=== PATIENT | male | born 2000 | race Caucasian/White ===

== ENCOUNTER 2023-12-14 09:23 | Emergency (ER) | payer MEDICAID ==
[~2023-12-14] VITALS: Ht 188 cm; Wt 81.8 kg
[2023-12-14 09:41] VITALS: TEMP 98.6
[2023-12-14 10:45] LABS: BASOPHILS % (AUTO) 0.2 % (0.0-2.0); EOSINOPHILS % (AUTO) 0.1 % (1.0-6.0); HEMATOCRIT 37.5 % (41-53); HEMOGLOBIN 12.8 g/dL (13.5-17.5); LYMPHOCYTES # (AUTO) 0.7 K/uL (1.0-4.8); LYMPHOCYTES % (AUTO) 10.2 % (22.0-44.0); MEAN CORPUSCULAR VOLUME 88 fL (80-100); MONOCYTES # (AUTO) 0.3 K/uL (0.1-1.0); MONOCYTES % (AUTO) 4.4 % (2.0-9.0); NEUTROPHILS # (AUTO) 6.1 K/uL (1.8-7.7); NEUTROPHILS % (AUTO) 85.1 % (40.0-70.0); PLATELET COUNT (AUTO) 474 K/uL (150-450); RED BLOOD CELL COUNT(AUTO) 4.25 MIL/uL (4.50-5.90); RED CELL DISTRIBUTION WIDTH 13.3 % (11.5-14.5); WHITE BLOOD COUNT (AUTO) 7.2 K/uL (4.5-11.0)
[2023-12-14 10:55] LABS: ANION GAP 12 mmol/L (8-16); CALCIUM, TOTAL 8.8 mg/dL (8.8-10.5); CARBON DIOXIDE 25 mmol/L (22-29); CHLORIDE 102 mmol/L (98-107); CREATININE 0.73 mg/dL (0.60-1.30); GLOMERULAR FILTR. RATE CALC > 60 mL/min (>60); GLUCOSE,RANDOM 89 mg/dL (70-110); POTASSIUM 3.9 mmol/L (3.5-5.1); SODIUM SERUM 139 mmol/L (136-145); UREA NITROGEN, BLOOD 16 mg/dL (7-18)
[2023-12-14 11:02] LABS: ALANINE AMINOTRANSFERASE 29 U/L (12-78); ALBUMIN 3.8 g/dL (3.4-5.0); ALKALINE PHOSPHATASE 94 U/L (46-116); ASPARTATE AMINOTRANSFERASE 22 U/L (15-37); BILIRUBIN,TOTAL 0.3 mg/dL (0.1-1.0)
[2023-12-14 11:04] LABS: ALCOHOL, URINE DRUG SCREEN NEGATIVE (NEGATIVE); AMPHET/METH SCREEN,URINE POSITIVE (NEGATIVE); BARBITURATE SCREEN, URINE NEGATIVE (NEGATIVE); BENZODIAZEPINES SCREEN,URINE NEGATIVE (NEGATIVE); CANNABINOID SCREEN,URINE POSITIVE (NEGATIVE); COCAINE SCREEN,URINE NEGATIVE (NEGATIVE); METHADONE SCREEN, URINE NEGATIVE (NEGATIVE); OPIATE SCREEN,URINE NEGATIVE (NEGATIVE); PHENCYCLIDINE SCREEN,URINE NEGATIVE (NEGATIVE)
[2023-12-14 11:20] LABS: ALCOHOL, BLOOD (SERUM) < 3 mg/dL (0-10)
[2023-12-14 12:20] VITALS: BP 130/70; PULSE 64; RESP 16
== END 2023-12-14 12:46 | disposition home or self-care (01) ==
LOC: EMS 09:28
DX: S90.829A Blister (nonthermal), unspecified foot, initial encounter (principal); F15.10 Other stimulant abuse, uncomplicated; R53.1 Weakness; F12.90 Cannabis use, unspecified, uncomplicated; Z59.00 Homelessness unspecified; X58.XXXA Exposure to other specified factors, initial encounter; Y93.89 Activity, other specified; Y92.89 Other specified places as the place of occurrence of the external cause; Y99.8 Other external cause status
CPT/HCPCS: 99283; 80053; 85025; 36415; 80307; G0480

== ENCOUNTER 2024-11-14 17:55 | Inpatient (IN) | payer MEDICAID ==
[~2024-11-14] VITALS: Ht 172.7 cm; Wt 67.6 kg
[2024-11-14 18:29] LABS: BASOPHILS % (AUTO) 0.4 % (0.0-2.0); EOSINOPHILS % (AUTO) 0.4 % (1.0-6.0); HEMOGLOBIN 13.4 g/dL (13.5-17.5); LYMPHOCYTES # (AUTO) 1.2 K/uL (1.0-4.8); LYMPHOCYTES % (AUTO) 13.9 % (22.0-44.0); MEAN CORPUSCULAR HEMOGLOBIN 29.6 pg (26.0-34.0); MEAN CORPUSCULAR HGB CONC 33.4 G/dL (31.0-37.0); MEAN CORPUSCULAR VOLUME 89 fL (80-100); MONOCYTES # (AUTO) 0.4 K/uL (0.1-1.0); MONOCYTES % (AUTO) 4.5 % (2.0-9.0); NEUTROPHILS # (AUTO) 6.9 K/uL (1.8-7.7); NEUTROPHILS % (AUTO) 80.8 % (40.0-70.0); PLATELET COUNT (AUTO) 377 K/uL (150-450); RED BLOOD CELL COUNT(AUTO) 4.52 MIL/uL (4.50-5.90); RED CELL DISTRIBUTION WIDTH 13.9 % (11.5-14.5); WHITE BLOOD COUNT (AUTO) 8.6 K/uL (4.5-11.0)
[2024-11-14 18:38] LABS: ANION GAP 8 mmol/L (8-16); CARBON DIOXIDE 30 mmol/L (22-29); CHLORIDE 99 mmol/L (98-107); CREATININE 0.91 mg/dL (0.60-1.30); GLOMERULAR FILTR. RATE CALC > 60 mL/min (>60); GLUCOSE,RANDOM 101 mg/dL (70-110); POTASSIUM 3.7 mmol/L (3.5-5.1); SODIUM SERUM 137 mmol/L (136-145); UREA NITROGEN, BLOOD 7 mg/dL (7-18)
[2024-11-14 18:41] LABS: COVID AG,FIA SOURCE NASAL SWAB
[2024-11-14 18:41] LABS: ALCOHOL, BLOOD (SERUM) < 3 mg/dL (0-10)
[2024-11-14 18:48] LABS: PH,URINE DRUG SCREEN 6.5 (5.0-8.0)
[2024-11-14 18:56] LABS: ALCOHOL, URINE DRUG SCREEN NEGATIVE (NEGATIVE); AMPHET/METH SCREEN,URINE POSITIVE (NEGATIVE); BARBITURATE SCREEN, URINE NEGATIVE (NEGATIVE); BENZODIAZEPINES SCREEN,URINE NEGATIVE (NEGATIVE); CANNABINOID SCREEN,URINE POSITIVE (NEGATIVE); COCAINE SCREEN,URINE NEGATIVE (NEGATIVE); METHADONE SCREEN, URINE NEGATIVE (NEGATIVE); OPIATE SCREEN,URINE NEGATIVE (NEGATIVE); PHENCYCLIDINE SCREEN,URINE NEGATIVE (NEGATIVE)
[2024-11-14] MEDS: HALOPERIDOL 5 MG TABLET PO ONE (19:04)
[2024-11-14 19:05] LABS: SARS-COV2 (COVID) ANTIGEN,FIA Negative (Negative)
[2024-11-14] MEDS: DiphenhydrAMINE HCL 25 MG CAPSULE PO ONE (19:58)
[2024-11-14] MEDS: LORazepam 2 MG TABLET PO ONE (19:58)
[2024-11-15] VITALS (11 sets, daily range): BP systolic 104–134; BP diastolic 61–82; PULSE 68–105; RESP 15–18; TEMP 97.3–98.5; O2SAT 96–99
[2024-11-15] MEDS ORDERED: INFLUENZA VIRUS VACCINE TVS (6MO+) 2024-25/PF 45 MCG/0.5 ML SYRINGE IM. ONE (03:15)
[2024-11-15] MEDS ORDERED: PROMETHAZINE HCL 25 MG TABLET PO PRN (09:45)
[2024-11-15] MEDS ORDERED: OLANZapine 5 MG RAPDIS TABLET PO PRN (09:45)
[2024-11-15] MEDS ORDERED: GuaiFENesin/D-METHORPHAN [SUGAR-FREE] 200-20MG/10 ML SYRUP UDCUP PO PRN (09:45)
[2024-11-15] MEDS ORDERED: MAG HYDROX/ALUMINUM HYD/SIMETH ES 30 ML SUSPENSION UDCUP PO PRN ×2 (09:45)
[2024-11-15] MEDS ORDERED: MAGNESIUM HYDROXIDE SUSPENSION 30 ML UDCUP PO PRN (09:45)
[2024-11-15] MEDS ORDERED: TUBERCULIN, PURIFIED PROTEIN DERIVATIVE 5 TU/0.1 ML SYRINGE ID ONE (09:45)
[2024-11-15] MEDS ORDERED: HydrOXYzine PAMOATE 50 MG CAPSULE PO PRN (09:45)
[2024-11-15] MEDS ORDERED: MELATONIN 5 MG TABLET PO PRN (09:45)
[2024-11-15] MEDS ORDERED: LOPERAMIDE HCL 2 MG CAPSULE PO PRN (09:45)
[2024-11-15] MEDS ORDERED: ACETAMINOPHEN 325 MG TABLET PO PRN (09:45)
[2024-11-15] MEDS ORDERED: CloNIDine HCL 0.1 MG TABLET PO PRN (09:45)
[2024-11-15] MEDS ORDERED: IBUPROFEN 600 MG TABLET PO PRN (09:45)
[2024-11-15] MEDS: CloNIDine HCL 0.1 MG TABLET PO SCH (11:35)
[2024-11-15] MEDS: LORazepam 2 MG TABLET PO PRN (17:20)
[2024-11-15] MEDS: THIAMINE 100 MG TABLET PO SCH (17:20)
[2024-11-15] MEDS: ZOLPIDEM TARTRATE 10 MG TABLET PO PRN (20:41)
[2024-11-15] MEDS: QUEtiapine FUMARATE 200 MG TABLET PO SCH (20:41)
[2024-11-15] MEDS ORDERED: OLANZapine 5 MG RAPDIS TABLET PO SCH (21:00)
[2024-11-16 02:00] VITALS: BP 123/78; PULSE 82; RESP 18; TEMP 98; O2SAT 98
[2024-11-16 06:00] VITALS: BP 109/68; PULSE 90; RESP 18; TEMP 98.2; O2SAT 99
[2024-11-16] MEDS: FOLIC ACID 1 MG TABLET PO SCH (08:18)
[2024-11-16] MEDS: MULTIVITAMINS WITH MINERALS, THERAPEUTIC TABLET PO SCH (08:18)
[2024-11-16] MEDS: HALOPERIDOL 5 MG TABLET PO PRN (08:19)
[2024-11-16] MEDS ORDERED: FLUoxetine HCL 10 MG CAPSULE PO SCH ×2 (09:00)
[2024-11-16] MEDS: FLUoxetine HCL 20 MG CAPSULE PO SCH (09:09)
[2024-11-16 09:30] VITALS: BP 112/68; PULSE 75; RESP 17; TEMP 97.5; O2SAT 97
[2024-11-16 09:31] VITALS: BP 112/68; PULSE 75; RESP 17; TEMP 97.5; O2SAT 97
[2024-11-16] MEDS ORDERED: NICOTINE POLACRILEX 2 MG LOZENGE PO PRN (09:45)
[2024-11-16 09:52] LABS: HEMOGLOBIN A1C 5.5 % (3.8-5.6)
[2024-11-16 10:28] LABS: CHOL/HDL RATIO 4.3 (4.2-7.3); FREE T4 (FREE THYROXINE) 0.98 ng/dL (0.76-1.46); THYROID STIMULATING HORMONE 0.54 uIU/mL (0.36-3.74)
[2024-11-16 20:00] VITALS: BP 104/61; PULSE 90; RESP 18; TEMP 98; O2SAT 98
[2024-11-16 20:39] VITALS: BP 104/61; PULSE 90; RESP 18; TEMP 98; O2SAT 98
[2024-11-16] MEDS: QUEtiapine FUMARATE 200 MG TABLET PO SCH (20:39)
[2024-11-17 06:09] VITALS: BP 111/66; PULSE 67; RESP 20; TEMP 98.4; O2SAT 99
[2024-11-17 06:10] VITALS: BP 111/66; PULSE 67; RESP 20; TEMP 98.4; O2SAT 99
[2024-11-17 08:49] VITALS: BP 100/63; PULSE 94; RESP 17; TEMP 97.8; O2SAT 100
[2024-11-17 11:31] VITALS: BP 115/79; PULSE 114; RESP 18; O2SAT 99
[2024-11-17 16:43] VITALS: BP 150/78; PULSE 112; RESP 18; O2SAT 96
[2024-11-17 20:00] VITALS: BP 121/60; PULSE 100; RESP 16; TEMP 97.5; O2SAT 98
[2024-11-18 05:54] VITALS: BP 112/81; PULSE 97; RESP 18
[2024-11-18 09:44] VITALS: BP 100/69; PULSE 94; RESP 18; TEMP 97.8; O2SAT 97
[2024-11-18] MEDS: HydrOXYzine PAMOATE 50 MG CAPSULE PO PRN (10:22)
[2024-11-18] MEDS: QUEtiapine FUMARATE 100 MG TABLET PO PRN (10:22)
[2024-11-18 12:38] VITALS: BP 133/74; PULSE 114; RESP 18
[2024-11-18] MEDS ORDERED: QUET200T PO (13:07)
[2024-11-18] MEDS ORDERED: FLUO-177 PO (13:08)
== END 2024-11-18 14:00 | disposition home or self-care (01) | DRG 750 ==
LOC: EMS 17:55 → B3A 11-15 01:16 → UNDODISIN 11-18 14:00
PROVIDERS: ADMIT Psychiatry & Neurology Psychiatry; ATTEND Psychiatry & Neurology Psychiatry
PROC: GZHZZZZ Group Psychotherapy (ICD-10-PCS; principal; 2024-11-15)
PROC: GZ51ZZZ Individual Psychotherapy, Behavioral (ICD-10-PCS; 2024-11-15)
DX: F25.9 Schizoaffective disorder, unspecified (principal); R45.851 Suicidal ideations; E11.9 Type 2 diabetes mellitus without complications; F17.210 Nicotine dependence, cigarettes, uncomplicated; G47.00 Insomnia, unspecified; J44.9 Chronic obstructive pulmonary disease, unspecified; F12.20 Cannabis dependence, uncomplicated; F11.20 Opioid dependence, uncomplicated; F15.20 Other stimulant dependence, uncomplicated; F10.20 Alcohol dependence, uncomplicated; F41.9 Anxiety disorder, unspecified; Z55.9 Problems related to education and literacy, unspecified; Z63.9 Problem related to primary support group, unspecified; Z65.3 Problems related to other legal circumstances; Z59.00 Homelessness unspecified; Z20.822 Contact with and (suspected) exposure to COVID-19
CPT/HCPCS: 80048; 80061; 80307; 83036; 84439; 84443; 85025; 86592; 99285; G0480

== ENCOUNTER 2024-11-24 00:53 | Emergency (ER) | payer MEDICAID ==
[~2024-11-24] VITALS: Ht 188 cm; Wt 81.8 kg
[~2024-11-24 00:53] MED LIST: FLUO-177 PO; QUET200T PO
[2024-11-24 02:02] VITALS: TEMP 98.6
[2024-11-24 02:26] LABS: COVID AG,FIA SOURCE NASAL SWAB
[2024-11-24 02:33] LABS: BASOPHILS % (AUTO) 0.6 % (0.0-2.0); EOSINOPHILS % (AUTO) 0.8 % (1.0-6.0); HEMATOCRIT 39.1 % (41-53); HEMOGLOBIN 13.3 g/dL (13.5-17.5); LYMPHOCYTES # (AUTO) 1.3 K/uL (1.0-4.8); MEAN CORPUSCULAR HEMOGLOBIN 29.8 pg (26.0-34.0); MEAN CORPUSCULAR HGB CONC 33.9 G/dL (31.0-37.0); MEAN CORPUSCULAR VOLUME 88 fL (80-100); MONOCYTES # (AUTO) 0.5 K/uL (0.1-1.0); MONOCYTES % (AUTO) 5.7 % (2.0-9.0); NEUTROPHILS # (AUTO) 6.7 K/uL (1.8-7.7); NEUTROPHILS % (AUTO) 77.9 % (40.0-70.0); PLATELET COUNT (AUTO) 383 K/uL (150-450); RED BLOOD CELL COUNT(AUTO) 4.46 MIL/uL (4.50-5.90); RED CELL DISTRIBUTION WIDTH 14.1 % (11.5-14.5); WHITE BLOOD COUNT (AUTO) 8.7 K/uL (4.5-11.0)
[2024-11-24 02:39] LABS: ANION GAP 10 mmol/L (8-16); CALCIUM, TOTAL 8.3 mg/dL (8.8-10.5); CARBON DIOXIDE 27 mmol/L (22-29); CHLORIDE 106 mmol/L (98-107); CREATININE 0.99 mg/dL (0.60-1.30); GLOMERULAR FILTR. RATE CALC > 60 mL/min (>60); GLUCOSE,RANDOM 104 mg/dL (70-110); SODIUM SERUM 143 mmol/L (136-145); UREA NITROGEN, BLOOD 12 mg/dL (7-18)
[2024-11-24] MEDS: HALOPERIDOL 5 MG TABLET PO ONE (02:41)
[2024-11-24] MEDS: DiphenhydrAMINE HCL 25 MG CAPSULE PO ONE (02:41)
[2024-11-24] MEDS: LORazepam 2 MG TABLET PO ONE (02:41)
[2024-11-24 02:46] LABS: SARS-COV2 (COVID) ANTIGEN,FIA Negative (Negative)
[2024-11-24 03:11] LABS: ALCOHOL, BLOOD (SERUM) < 3 mg/dL (0-10)
[2024-11-24] MEDS: OLANZapine 10 MG TABLET PO ONE (06:08)
[2024-11-24 06:40] VITALS: BP 119/88; PULSE 89; RESP 15; O2SAT 99
== END 2024-11-24 07:00 | disposition home or self-care (01) ==
LOC: EMS 00:53
DX: F20.9 Schizophrenia, unspecified (principal); F12.90 Cannabis use, unspecified, uncomplicated; F15.90 Other stimulant use, unspecified, uncomplicated; Z79.899 Other long term (current) drug therapy; Z20.822 Contact with and (suspected) exposure to COVID-19
CPT/HCPCS: 99285; 87426; 80048; 85025; 36415; G0480